=== PATIENT | male | born 1980 | race African-American/Black ===

== ENCOUNTER 2020-03-23 21:57 | Emergency (ER) | payer OTHER, SELFPAY ==
--- NOTE | 2020-03-23 21:45 | RT.EKG_ITS ---
APPROVED REPORT Exam: Resting ECG Patient Location: E HR:104 bpm ECG Measurements Heart Rate 104 AXIS NC 177 P 29 QRSd 91 QRS 22 QT 347 T 13 QTc 457 Conclusion Sinus tachycardia...rate> 99 Probable left atrial enlargement...P >50mS, <-0.10mV V1 ST elevation suggests acute pericarditis...ST >0.10mV, ant/lat/inf Physician: EKG 21: 11 Rate 104, sinus tachycardia, intervals stable, no significant ST elevations or depressions, no T wave inversions, no evidence of STEMI. There is a Q wave in lead III, inverted T wave in lead III.
--- NOTE | 2020-03-23 22:15 | ED.GENADUL_ITS ---
Discharge Plan Disposition Patient Disposition: HOME Condition: Good Discharge Details Clinical Impression: Acute hypokalemia, Chest pain, Rib pain on left side Primary Care Provider: Unknown,Unknown ED Provider: Nikita Lawrence Home Meds and New Rx's Prescriptions: New lidocaine [Lidoderm] 1 PATCH patch 1 patch Topical Q24H Qty: 4 RF: 0 Continued metolazone 2.5 mg Tablet 2.5 mg PO DAILY RF: 0 albuterol sulfate 2.5 mg /3 mL (0.083 %) Solution For Nebulization 2.5 mg INHALATION TID RF: 0 trazodone 150 mg Tablet 150 mg PO DAILY RF: 0 ibuprofen 400 mg Tablet 400 mg PO BID PRNRF: 0 docusate sodium 100 mg Capsule 100 mg PO BID RF: 0 albuterol 90 mcg/actuation Aerosol 90 mcg INHALATION TID PRNRF: 0 fluticasone propionate 50 mcg/actuation [place],Suspension 1 spray INTRANASAL DAILY RF: 0 buprenorphine HCl 8 mg Tablet, Sublingual 8 mg SUBLINGUAL DAILY RF: 0 senna 8.6 mg Capsule 17.2 mg PO QHS RF: 0 magnesium hydroxide [Milk Of Magnesia Concentrated] 2,400 mg/10 mL Suspension 10 ml PO DAILY PRNRF: 0 clonidine HCl 0.1 mg Tablet 0.1 mg PO QHS RF: 0 acetaminophen 325 mg Tablet 650 mg PO ONCE RF: 0 melatonin 3 mg Tablet 9 mg PO HS PRNRF: 0 trazodone 150 mg Tablet 150 mg PO DAILY RF: 0 calcium carbonate [Calcium Antacid] 200 mg calcium (500 mg) Tablet,Chewable 200 mg PO TID PRNRF: 0 hydroxyzine HCl 25 mg Tablet 25 mg PO DAILY RF: 0 furosemide 20 mg Tablet 20 mg PO DAILY RF: 0 Discharge Instructions Instructions: Chest Pain (ED), Hypokalemia (ED), Chest Wall Pain (ED) Additional Instructions: At this time your work-up is very reassuring from your heart. There appears to be no signs of significant cardiac issue currently. The pain in your chest I feel is likely secondary to a sprain rib and strained muscles. Please use the Lidoderm patch, and take Tylenol and Motrin as needed for this. Changing your sleeping predicament may help this. Your potassium was noted to be low, please make sure you are eating fruit like bananas, legumes, prunes, to help with your potassium status. A low potassium can occur when you are taking the water pill furosemide. If you notice any worsening of your symptoms, or any new symptoms such as vomiting, diarrhea, fever, chills, shortness of breath, chest pain, numbness, weakness, or fainting , please return immediately to the emergency department for reevaluation. Please follow up with your primary care provider as soon as possible for reassessment and reevaluation. As always, it was a pleasure participating in your medical care today. Medical Decision Making 39-year-old male who is a slightly poor historian but does admit to a history of water on his legs, as well as occasional extra heartbeat but denies any other past medical history, presents today for left-sided chest pain. Patient states that for last 24 to 48 hours he has had mild left-sided chest pain, notably worse with breathing. He denies any cough, fever or chills. He states that he feels like there is some pressure in that area, particularly made worse when he breathes. He does admit to swelling in his left lower extremity 3 days ago, but this is resolved. He denies pain there. He denies any recent long trips surgeries or procedures. He does have a family history of blood clots in his mother and grandmother but denies any for himself. He denies any arm pain, neck pain or shoulder pain. He denies any bandlike sensation of pressure around his chest. He denies any history of VT. No other complaints at this time. No other modifying factors. Exam demonstrates reproducible musculoskeletal chest pain of the left lateral ribs. No other significant abnormalities. No calf tenderness. Remainder of exam is unremarkable. He is mildly tachycardic, which is atypical. His history of blood clots in his family is certainly concerning. We will gently rehydrate, get a D-dimer, evaluate for cardiac etiology. There appears to be a clear musculoskeletal component with the reproducibility for his left lateral rib pain. Will monitor closely, add a Lidoderm patch and reassess. 1:32 AM Laboratory work-up is returned, heart rate notably improved after fluids, white count normal, no bandemia or left shift, D-dimer negative, but with the patient being PERC positive, but low risk on Wells score was 1.5 points, the can be ruled out with D-dimer at this time. pH shows no significant acidosis, potassium was low at 2.8, magnesium normal, he was repleted with 20 mEq IV and 40 mEq p.o., the remainder of his renal function and comprehensive metabolic panel is unremarkable. proBNP is 7, no clinical or laboratory evidence of severe heart failure. Thyroid function normal. Patient feeling better after Lidoderm patch fluids. Suspect that the etiology of his symptoms is likely musculoskeletal. Repeat EKG shows no acute changes., No evidence of STEMI. 2:15 AM Repeat troponin normal, patient feels well. Signs and symptoms at this time are clinically inconsistent with ACS, PE, or dissection and are currently concerning for more of a musculoskeletal strain. Pericarditis seems unlikely. Recommend NSAIDs, Lidoderm patch, discussed the importance of potassium rich foods, and potential change in sleeping predicament. Discussed red flags which to return. I have extensively reviewed the treatment plan and discharge instructions with the patient. I have addressed all patient concerns at this time. The patient was made aware of what symptoms to monitor for that would warrant a return to the emergency department. Discussed the plan with the patient, they demonstrate verbal understanding and agreement with our assessment and plan at this time. The documentation in this chart was dictated using [employer] dictation software. Please excuse any dictation errors. EKG 21: 11 Rate 104, sinus tachycardia, intervals stable, no significant ST elevations or depressions, no T wave inversions, no evidence of STEMI. There is a Q wave in lead III, inverted T wave in lead III. FINDINGS: Tubes, catheters and devices: Cardiac leads superimposed over the chest bilaterally. Lungs: No alveolar infiltrate. Pleural spaces: No pleural fluid collection. No pneumothorax. Heart/Mediastinum: Normal heart size. Bones/joints: Unremarkable for age. IMPRESSION: No active pulmonary disease. Thank you for allowing us to participate in the care of your patient. Dictated and Authenticated by: Jose Stevens MD 03/24/2020 12:01 AM Eastern Time ([place] & [place]) HPI General Date/Time Provider Initiated Documentation: 03/23/20 21:58 . HPI Narrative: 39-year-old male who is a slightly poor historian but does admit to a history of water on his legs, as well as occasional extra heartbeat but denies any other past medical history, presents today for left-sided chest pain. Patient states that for last 24 to 48 hours he has had mild left-sided chest pain, notably worse with breathing. He denies any cough, fever or chills. He states that he feels like there is some pressure in that area, particularly made worse when he breathes. He does admit to swelling in his left lower extremity 3 days ago, but this is resolved. He denies pain there. He denies any recent long trips surgeries or procedures. He does have a family history of blood clots in his mother and grandmother but denies any for himself. He denies any arm pain, neck pain or shoulder pain. He denies any bandlike sensation of pressure around his chest. He denies any history of VT. No other complaints at this time. No other modifying factors. Related Data Home Medications Medication Instructions Recorded Confirmed acetaminophen 650 mg PO ONCE 03/23/20 03/23/20 albuterol 90 mcg INHALATION TID PRN 03/23/20 03/23/20 albuterol sulfate 2.5 mg INHALATION TID 03/23/20 03/23/20 buprenorphine HCl 8 mg SUBLINGUAL DAILY 03/23/20 03/23/20 calcium carbonate [Calcium Antacid] 200 mg PO TID PRN 03/23/20 03/23/20 clonidine HCl 0.1 mg PO QHS 03/23/20 03/23/20 docusate sodium 100 mg PO BID 03/23/20 03/23/20 fluticasone propionate 1 spray INTRANASAL DAILY 03/23/20 03/23/20 furosemide 20 mg PO DAILY 03/23/20 03/23/20 hydroxyzine HCl 25 mg PO DAILY 03/23/20 03/23/20 ibuprofen 400 mg PO BID PRN 03/23/20 03/23/20 magnesium hydroxide [Milk Of 10 ml PO DAILY PRN 03/23/20 03/23/20 Magnesia Concentrated] melatonin 9 mg PO HS PRN 03/23/20 03/23/20 metolazone 2.5 mg PO DAILY 03/23/20 03/23/20 senna 17.2 mg PO QHS 03/23/20 03/23/20 trazodone 150 mg PO DAILY 03/23/20 03/23/20 trazodone 150 mg PO DAILY 03/23/20 03/23/20 lidocaine [Lidoderm] 1 patch TOPICAL Q24H #4 ea 03/24/20 Previous Rx's Medication Instructions Recorded lidocaine [Lidoderm] 1 patch TOPICAL Q24H #4 ea 03/24/20 Allergies Allergy/AdvReac Type Severity Reaction Status Date / Time No Known Allergies Allergy Unverified 03/23/20 22:24 Review of Systems All systems reviewed & are unremarkable except as noted in HPI and below PFSH Social History Smoking risk assessment performed?: No Current gender identity: male Exam Narrative Exam Narrative: 1.Const: Well-nourished, Well-developed, appearing stated age 2.Eyes: PERRL, no conjunctival injection, and symmetrical lids. 3.ENT: Atraumatic external nose and ears. Moist MM. Neck: Symmetric, trachea midline, No thyromegaly. 4.CVS: +S1/S2, No murmurs or gallops. Peripheral pulses 2+ and equal in all extremities. Brisk capillary refill in all extremities. 5.RESP: Unlabored respiratory effort. Clear to auscultation bilaterally. No wheezes rales or rhonchi, reproducible chest pain on palpation of the left lateral ribs. No evidence of significant trauma. 6.GI: Soft, Nontender/Nondistended, No hepatosplenomegaly. No guarding or rebound. 7.MSK: Normocephalic/Atraumatic, Extremities w/o deformity or ttp No cyanosis or clubbing, Normal movement of all extremities, no calf tenderness, no significant pitting edema in lower extremities. No unilateral swelling. 8.Skin: Warm, Dry. No rashes or lesions. 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 Sensation grossly intact, no focal neurologic deficits. 10.Psych: (AAO) x3. Appropriate mood and affect
[2020-03-23 22:22] VITALS: BP 145/89; PULSE 112; RESP 11; TEMP 36.3; O2SAT 95
[2020-03-23 22:26] LABS: BE (Venous) 13 mmol/L (-2-3); HCO3 (Venous) 37 mmol/L (23-28); O2 Sat (Venous) 87 %; TCO2 (Venous) 32 mmol/L (24-29); pCO2 (Venous) 54 mmHg (41-51); pH (Venous) 7.44 (7.31-7.41); pO2 (Venous) 52 mmHg
[2020-03-23 22:27] LABS: Abs Immature Grans 0.02 10^3/uL (0.0-0.06); Absolute Basophil Count 0.02 10^3/uL (0.0-0.2); Absolute Eosinophil Count 0.04 10^3/uL (0.0-0.7); Absolute Lymphocyte Count 3.12 10^3/uL (1.2-3.4); Absolute Monocyte Count 0.66 10^3/uL (0.1-0.8); Basophils % 0.2; Eosinophils % 0.4; HCT 45.1 % (40.0-50.0); HGB 14.5 g/dL (13.5-17.5); Immature Grans % 0.2; Lymphocytes % 33.3; MCH 25.7 pg (27.0-33.0); MCHC 32.2 % (32.0-36.0); MPV 9.6 fL (8.0-11.0); Monocytes % 7.1; Neutrophils % 58.8; Nucleated RBC 0 %; Platelet Count 280 10^3/uL (130-400); RBC 5.64 10^6/uL (4.36-5.78); RDW 12.8 % (11.8-14.1); RDW-SD 36.6 fL; WBC 9.36 10^3/uL (4.4-10.8)
[2020-03-23] MEDS: Lidocaine 5% Patch 1 PATCH TP (22:37)
[2020-03-23] MEDS: Ketorolac 30 MG/ML VIAL IVP (22:38)
[2020-03-23] MEDS: Normal Saline 1,000 ML 1000 ML IV (22:38)
[2020-03-23 23:04] LABS: ALT 68 U/L (16-63); AST 32 U/L (15-37); Albumin 3.8 g/dL (3.4-5.0); Alkaline Phosphatase 107 U/L (46-116); Anion Gap 4.5 mmol/L (3-11); BUN 13 mg/dL (7-18); Bilirubin, Total 0.2 mg/dL (0.2-1.0); CO2 34.5 mmol/L (21.0-32.0); CREATININE 1.1 mg/dL (0.70-1.30); Chloride 98 mmol/L (98-107); Glucose 193 mg/dL (74-106); Sodium 137 mmol/L (136-145); TSH (W/Ref FT4) 2.36 uIU/mL (0.36-3.74); Total Protein 7.5 g/dL (6.4-8.2)
[2020-03-23 23:13] LABS: D-Dimer 430 ng/mlFEU (<500)
--- NOTE | 2020-03-23 23:15 | DI.RAD_ITS ---
EXAM: XR PORTABLE CHEST AP CLINICAL HISTORY: left chest wall pain TECHNIQUE: 2D digital imaging was performed. COMPARISON: No exams were available for comparison FINDINGS: MEDIASTINUM: Normal. HEART: Normal. PULMONARY VASCULATURE: Normal. LUNGS: Clear. PLEURAL SPACE: No pleural effusion or pneumothorax. BONE:Within normal limits for the patient's age. OTHER FINDINGS:Normal. IMPRESSION: No acute pulmonary findings. DATA REPOSITORY: RADIATION DOSE DELIVERED:
[2020-03-23 23:18] LABS: Potassium 2.8 mmol/L (3.5-5.1); Troponin I < 0.05 ng/mL (<0.06)
[2020-03-23 23:39] LABS: Magnesium 2.2 mg/dL (1.8-2.4)
[2020-03-24] VITALS: BP 121/67; PULSE 96; RESP 12; RESP 16; O2SAT 96
[2020-03-24] MEDS: Potassium Chloride 20 MEQ TABCR 40 MEQ PO
[2020-03-24] MEDS: POTASSIUM CHLORIDE 20 MEQ/100 ML BAG 50 MEQ IVPB
--- NOTE | 2020-03-24 00:01 | DI.VRAD_ITS ---
PROCEDURE INFORMATION: Exam: XR Chest, 1 View Exam date and time: 03/23/2020 11:25 PM Age: 39 years old Clinical indication: Left chest wall pain TECHNIQUE: Imaging protocol: XR of the chest Views: 1 view. COMPARISON: No relevant prior studies available. FINDINGS: Tubes, catheters and devices: Cardiac leads superimposed over the chest bilaterally. Lungs: No alveolar infiltrate. Pleural spaces: No pleural fluid collection. No pneumothorax. Heart/Mediastinum: Normal heart size. Bones/joints: Unremarkable for age. IMPRESSION: No active pulmonary disease. Dictated and Authenticated by: Jose Stevens MD. Ordering:ASHWIN Shelton MD
[2020-03-24 00:08] LABS: PTT Activated 25.4 sec (21.0-27.5)
[2020-03-24 00:20] LABS: Prothrombin Time 10.4 sec (9.3-11.0)
[2020-03-24 00:36] LABS: NT-proBNP 7 pg/mL (<300)
--- NOTE | 2020-03-24 01:00 | RT.EKG_ITS ---
APPROVED REPORT Exam: Resting ECG Patient Location: E HR:89 bpm ECG Measurements Heart Rate 89 AXIS ME 179 P 51 QRSd 88 QRS 7 QT 361 T 11 QTc 440 Conclusion Sinus rhythm...normal P axis, V-rate 60- 99 ST elevation suggests acute pericarditis...ST >0.10mV, ant/lat/inf Physician: No stemi, unchanged from prior.
[2020-03-24 01:53] LABS: Troponin I < 0.05 ng/mL (<0.06)
== END 2020-03-24 02:13 | disposition home or self-care (01) ==
PROVIDERS: Emergency Provider Student in an Organized Health Care Education/Training Program
DX: E87.6 Hypokalemia (principal); R07.81 Pleurodynia
CPT/HCPCS: 36415; 80053; 82805; 93005; 96361; 96365; 96366; 96375; 99285; 71045; 83735; 83880; 84443; 84484; 85025; 85379; 85610; 85730; 93010; J1885; J3480